=== PATIENT | female | born 1985 | race Caucasian/White ===

== ENCOUNTER 2016-08-14 17:44 | Emergency (ER) | payer SELFPAY ==
[2016-08-14 17:45] VITALS: BP 132/80; PULSE 61; RESP 16; TEMP 98.6; O2SAT 99
--- NOTE | 2016-08-14 17:57 | PD ---
HPI Chief Complaint: Abdominal Pain Time Seen by Provider: 17:57 Travel History International Travel<30 days: No Contact w/Intl Traveler<30days: No Traveled to known affect area: No History of Present Illness HPI 30-year-old female with no significant medical history presents to the emergency department for evaluation of epigastric pain with associated nausea and vomiting. This is been ongoing for the last 4 days. She states it is intermittent and sharp and stabbing. It is only in her epigastrium and does not radiate anywhere. She denies any hematemesis. No bowel changes. No urinary symptoms. No chance of as she has had a tubal ligation. Denies any fever. She has been intermittently chilled. Abdominal surgery is C- section. No other symptoms reported this time. [facility] Past Medical History Medical History: Denies Significant Hx ?: Not Social History Alcohol Use: No Tobacco Use: No Substance Use: No Allergies-Medications (Allergen,Severity, Reaction): Coded Allergies: No Known Allergies (Unverified , 08/14/16) Reported Meds & Prescriptions Reported Meds & Active Scripts Active No Active Prescriptions or Reported Medications Review of Systems Except as stated in HPI: all other systems reviewed are Neg Physical Exam Narrative GENERAL: Well-nourished female patient, in no acute distress. Patient is primarily [place]-speaking. Interpretation and translation is done with approval of patient by bedside family member. SKIN: Focused skin assessment warm/dry. HEAD: Atraumatic. Normocephalic. EYES: Pupils equal and round. No scleral icterus. No injection or drainage. ENT: No nasal bleeding or discharge. Mucous membranes pink and moist. NECK: Trachea midline. No JVD. CARDIOVASCULAR: Regular rate and rhythm. No murmur appreciated. RESPIRATORY: No accessory muscle use. Clear to auscultation. Breath sounds equal bilaterally. GASTROINTESTINAL: Abdomen soft, non-tender, nondistended. Hepatic and splenic margins not palpable. MUSCULOSKELETAL: No obvious deformities. No clubbing. No cyanosis. No edema. NEUROLOGICAL: Awake and alert. No obvious cranial nerve deficits. Motor grossly within normal limits. Normal speech. PSYCHIATRIC: Appropriate mood and affect; insight and judgment normal. Data Data Last Documented VS Vital Signs Date Time Temp Pulse Resp B/P Pulse Ox O2 Delivery O2 Flow Rate FiO2 08/14/16 17:45 98.6 61 16 132/80 99 Orders Complete Blood Count With Diff (08/14/16 18:09) Comprehensive Metabolic Panel (08/14/16 18:09) Lipase (08/14/16 18:09) Urinalysis - C+S If Indicated (08/14/16 18:09) Iv Access Insert/Monitor (08/14/16 18:09) Ecg Monitoring (08/14/16 18:09) Oximetry (08/14/16 18:09) Ondansetron Inj (Zofran Inj) (08/14/16 18:15) Sodium Chlor 0.9% 1000 Ml Inj (Ns 1000 M (08/14/16 18:09) Sodium Chloride 0.9% Flush (Ns Flush) (08/14/16 18:15) Ketorolac Inj (Toradol Inj) (08/14/16 18:15) Al-Mag Hy-Si 40-40-4 Mg/Ml Liq (Mag-Al P (08/14/16 18:15) Lidocaine 2% Viscous (Xylocaine 2% Visco (08/14/16 18:15) Ed Urine Pregnancytest Poc (08/14/16 18:09) Labs Laboratory Tests Test 08/14/16 18:40 White Blood Count 12.4 TH/MM3 Red Blood Count 4.58 MIL/MM3 Hemoglobin 13.5 GM/DL Hematocrit 40.0 % Mean Corpuscular Volume 87.2 FL Mean Corpuscular Hemoglobin 29.4 PG Mean Corpuscular Hemoglobin 33.7 % Concent Red Cell Distribution Width 13.1 % Platelet Count 297 TH/MM3 Mean Platelet Volume 9.4 FL Neutrophils (%) (Auto) 62.0 % Lymphocytes (%) (Auto) 27.9 % Monocytes (%) (Auto) 7.1 % Eosinophils (%) (Auto) 2.2 % Basophils (%) (Auto) 0.8 % Neutrophils # (Auto) 7.7 TH/MM3 Lymphocytes # (Auto) 3.5 TH/MM3 Monocytes # (Auto) 0.9 TH/MM3 Eosinophils # (Auto) 0.3 TH/MM3 Basophils # (Auto) 0.1 TH/MM3 CBC Comment DIFF FINAL Differential Comment Urine Color YELLOW Urine Turbidity HAZY Urine pH 7.5 Urine Specific [place] 1.013 Urine Protein NEG mg/dL Urine Glucose (UA) NEG mg/dL Urine Ketones NEG mg/dL Urine Occult Blood NEG Urine Nitrite NEG Urine Bilirubin NEG Urine Urobilinogen LESS THAN 2.0 MG/DL Urine Leukocyte Esterase SMALL Urine RBC LESS THAN 1 /hpf Urine WBC 6 /hpf Urine Squamous Epithelial 13 /hpf Cells Microscopic Urinalysis Comment CULT NOT INDICATED Sodium Level 141 MEQ/L Potassium Level 3.6 MEQ/L Chloride Level 106 MEQ/L Carbon Dioxide Level 27.9 MEQ/L Anion Gap 7 MEQ/L Blood Urea Nitrogen 11 MG/DL Creatinine 0.73 MG/DL Estimat Glomerular Filtration 94 ML/MIN Rate Random Glucose 92 MG/DL Calcium Level 8.5 MG/DL Total Bilirubin 0.4 MG/DL Aspartate Amino Transf 11 U/L (AST/SGOT) Alanine Aminotransferase 18 U/L (ALT/SGPT) Alkaline Phosphatase 40 U/L Total Protein 7.2 GM/DL Albumin 3.8 GM/DL Lipase 207 U/L [facility] Medical Decision Making Medical Screen Exam Complete: Yes Emergency Medical Condition: Yes Medical Record Reviewed: Yes Differential Diagnosis Gastritis versus GERD versus gastritis versus pancreatic his versus cholecystitis Narrative Course 30 year-old female presents to the emergency primary for evaluation of epigastric pain. Patient appears well and without distress. Her abdominal exam is benign. Vital signs are stable. CMC and CMP are without acute concern. Lipase is within normal limits. Patient is given GI cocktail and IV fluids. Patient is still reporting some epigastric pain. I have offered to CT the abdomen and pelvis at this time but strongly recommended GI follow-up outpatient. Patient then questions that this could be a hiatal hernia because she was told in [place] that she 1.. I did tell her that this could be the cause of her pain and again GI would be her best follow-up. I've explained to return immediately if she continues to vomit or the pain gets worse. She'll be discharged home [place] return immediately with any acute worsening symptoms. Diagnosis Primary Impression: Epigastric abdominal pain Referrals: [employer] Primary Care Physician Patient Instructions: Epigastric Pain (ED), General Instructions Additional Instructions: Follow-up with a primary care provider Seek gastroenterology evaluation if symptoms persist Return immediately with any acute worsening of symptoms Med/Other Pt SpecificInfo: Prescription(s) given Scripts Omeprazole 40 Mg Cap40 Mg PO DAILY #15 CAP Ref 0 Prov:Fely Albrecht 08/14/16 Disposition: 01 DISCHARGE HOME Condition: Stable Fely Albrecht Aug 14, 2016 17:57
[2016-08-14] MEDS ORDERED: SODIUM CHLOR 0.9% 1000 ML INJ 1,000 ML IV SCH (18:09)
[2016-08-14] MEDS ORDERED: SODIUM CHLORIDE 0.9% FLUSH 10 ML FLUSH IV FLUSH PRN (18:15)
[2016-08-14] MEDS ORDERED: ALUMINUM/MAGNESIUM/SIMETH 30 ML CUP PO ONE (18:15)
[2016-08-14] MEDS ORDERED: KETOROLAC TROMETHAMINE 30 MG/ML (IVP) VIAL IVP ONE (18:15)
[2016-08-14] MEDS ORDERED: LIDOCAINE VISCOUS 2% SOLN 15 ML UDC PO ONE (18:15)
[2016-08-14] MEDS ORDERED: ONDANSETRON HCL 4 MG/2 ML VIAL IVP ONE (18:15)
[2016-08-14 18:57] LABS: AUTOMATED NEUTROPHIL # 7.7 TH/MM3 (1.8-7.7); BASOPHIL # 0.1 TH/MM3 (0-0.2); BASOPHIL % 0.8 % (0.0-2.0); EOSINOPHIL # 0.3 TH/MM3 (0-0.4); EOSINOPHIL % 2.2 % (0.0-4.0); HEMO FLAGS DIFF FINAL; LYMPH % 27.9 % (9.0-44.0); LYMPHOCYTE # 3.5 TH/MM3 (1.0-4.8); MEAN CELL VOLUME 87.2 FL (80.0-100.0); MEAN CORPUSCULAR HEMOGLOBIN 29.4 PG (27.0-34.0); MEAN CORPUSCULAR HGB CONC 33.7 % (32.0-36.0); MONO % 7.1 % (0.0-8.0); PLATELET COUNT 297 TH/MM3 (150-450); RED BLOOD COUNT 4.58 MIL/MM3 (4.00-5.30); RED CELL DISTRIBUTION WIDTH 13.1 % (11.6-17.2); WHITE BLOOD COUNT 12.4 TH/MM3 (4.0-11.0)
[2016-08-14 19:06] LABS: BLOOD, URINE NEG (NEG); COMMENT (UR) CULT NOT INDICATED; CULTURE IF INDICATED CULT NOT INDICATED; GLUCOSE,URINE NEG (NEG); KETONE, URINE NEG (NEG); NITRITE,URINE NEG (NEG); PH, URINE 7.5 (5.0-8.5); SQUAMOUS EPITHELIAL CELL URINE 13 /hpf (0-5); URINE COLOR YELLOW (YELLW/STRAW)
[2016-08-14 19:09] LABS: ANION GAP 7 MEQ/L (5-15); AST (GOT) 11 U/L (15-37); BICARBONATE 27.9 MEQ/L (21.0-32.0); BLOOD UREA NITROGEN 11 MG/DL (7-18); CHLORIDE 106 MEQ/L (98-107); GLOMERULAR FILTRATION RATE 94 ML/MIN (>89); POTASSIUM 3.6 MEQ/L (3.5-5.1); SODIUM (NA) 141 MEQ/L (136-145)
[2016-08-14 19:12] LABS: ALKALINE PHOSPHATASE 40 U/L (45-117); ALT (GPT) 18 U/L (10-53); TOTAL BILIRUBIN ADULT 0.4 MG/DL (0.2-1.0)
[2016-08-14] MEDS ORDERED: OMEP40CA2 PO (19:30)
== END 2016-08-14 19:38 | disposition home or self-care (01) ==
LOC: NEPD 17:44
DX: R10.13 Epigastric pain (principal); R11.2 Nausea with vomiting, unspecified
CPT/HCPCS: 80053; 81001; 83690; 84703; 85025; 96374; 96375; 99283; J1885; J2405; J7030